=== PATIENT | female | born 1940 | race Caucasian/White ===

== ENCOUNTER 2017-02-23 08:12 | Outpatient (CLI) | payer MEDICARE ==
--- NOTE | 2017-02-23 10:14 | MRI ---
MRI OF THE LUMBAR SPINE WITHOUT CONTRAST: Date: 02/23/17 INDICATION: History of low back pain with radiation into the left leg. COMPARISON: Lumbar spine radiograph dated 02/09/14. FINDINGS: There are five lumbar-type vertebrae. There is Grade I anterolisthesis of L4 on L5 which is stable. The conus is seen to terminate at approximately L1. At L5-S1, there is moderate facet joint degenerative change and broad based disc bulge without appre ciable central canal or neural foraminal narrowing. At L4-5, the Grade I anterolisthesis, severe facet joint degenerative change, and ligamentum flavum hypertrophy induce moderate to severe central canal narrowing with moderate to severe bilateral neur al foraminal narrowing. At L4-5, there is advanced facet joint degenerative change, broad based disc bulge, and Grade I ante rolisthesis inducing mild central canal narrowing and mild bilateral neural foraminal narrowing. At L2-3, there is mild facet joint degenerative change without appreciable central canal or neural f oraminal narrowing. At L1-2, there is no appreciable central canal or neural foraminal narrowing. At T12-L1, there is no appreciable central canal or neural foraminal narrowing. At T9-T10, there is a disc osteophyte complex causing mild central canal narrowing and mild bilatera l neural foraminal narrowing. IMPRESSION: 1. Multilevel spondylosis of the thoracolumbar spine, most pronounced at L3-4 and L4-5. 2. There is mild central canal narrowing and mild bilateral neural foraminal narrowing at T9-T10. T his is related to a disc osteophyte complex. POS: DEANDRE
== END 2017-02-23 08:13 | disposition home or self-care (01) ==
LOC: TBSIIMAG 08:12
PROVIDERS: ATTEND Neurological Surgery
DX: M47.26 Other spondylosis with radiculopathy, lumbar region (principal); M48.04 Spinal stenosis, thoracic region
CPT/HCPCS: 72148

== ENCOUNTER 2018-01-24 10:16 | Outpatient (CLI) | payer MEDICARE | END 2018-01-24 10:17 | disposition home or self-care (01) | LOC: BICMAMMO 10:16 | PROVIDERS: ATTEND Family Medicine | DX: Z12.31 Encounter for screening mammogram for malignant neoplasm of breast (principal); Z85.41 Personal history of malignant neoplasm of cervix uteri | CPT/HCPCS: 77063; 77067 ==

== ENCOUNTER 2018-04-13 06:02 | Day surgery (SDC) | payer MEDICARE ==
[2018-04-12 08:38] VITALS: BMI 33.8
--- NOTE | 2018-04-13 05:59 | HP ---
HISTORY OF PRESENT ILLNESS: Ms. Knapp is a pleasant 77-year-old woman seen for evaluation and was followed by Dr. Medina for left-sided L4 pattern of pain in the bilateral lower extremities, radiating from the back and stopping just below the knee with onset back in June 2016 after knee replacement. She has a new MRI from [facility] that reveals spondylolisthesis at L4-L5, significant lateral recess and foraminal stenosis that would match. She has treated this over time with physical therapy, chiropractics, medications, but still to no avail. PAST MEDICAL HISTORY: Significant for acid reflux, heartburn, ischemic colitis, lymphatic colitis, and osteoarthritis. PAST SURGICAL HISTORY: Appendectomy, thyroidectomy, tonsillectomy, unspecified jaw surgery, bilateral carpal tunnel release, hysterectomy, arthroscopic knee surgery, cholecystectomy, unspecified bile duct surgery, , total knee replacement bilaterally, neuroma resection. CURRENT MEDICATIONS: 1. Omeprazole. 2. Levothyroxine. 3. Fenofibrate. 4. Diclofenac. 5. . 6. Losartan. 7. Amlodipine. 8. Ranitidine. 9. Budesonide. 10. Cyclobenzaprine. ALLERGIES: 1. CODEINE. 2. MORPHINE. 3. DEMEROL. 4. ASPIRIN. 5. VIOXX. PHYSICAL EXAMINATION: The patient is alert and oriented x3. Gait is not antalgic. Lower extremity motor exam is normal. Positive straight leg raise bilaterally. ASSESSMENT: Lumbar spondylolisthesis with radiculopathy. PLAN: Dr. Bethea met with the patient, reviewed imaging, advocated for an L4-L5 facetectomy and fusion. I explained the patient the risks, benefits, and alternatives of the procedure. The patient expressed understanding and elected to move forward with surgery as discussed. I do believe that the patient is mentally competent and capable of making medical decisions for herself and we will move forward with surgery as planned. Job ID: [id number]
[2018-04-13] MEDS ORDERED: CEFAZOLIN 2 GM/50 ML BAG ONE ×2 (07:12→14:11)
[2018-04-13] MEDS ORDERED: Bupivacaine HCl 0.5%/Epinephrine 1:200,000/PF 30 ml Vial ONE (08:26)
[2018-04-13] MEDS ORDERED: Midazolam HCl 2 mg/2 ml Vial ONE (08:30)
[2018-04-13] MEDS ORDERED: Fentanyl 100 MCG/2 ML VIAL ONE ×5 (08:30→11:49)
--- NOTE | 2018-04-13 09:48 | PRG ---
DATE OF SERVICE: 04/13/2018 SUBJECTIVE: Ms. Knapp is a 77-year-old female, known to me from previous evaluation in the outpatient setting for low back and bilateral lower extremity pain. She has a grade 1/borderline grade 2 spondylolisthesis of L4 upon L5. She has been treating this nonsurgically for the past couple of years in the way of medications, physical therapy, and injections. She decided to move forward with surgery. Our plan will be to perform a L4-L5 decompression with L4-L5 posterior lateral instrumented fusion. I met with her again in the outpatient day stay area this morning, reviewed with her again the risks, benefits, and alternatives to surgical procedure. She has offered informed consent. Job ID: [id number]
[2018-04-13] MEDS ORDERED: tiZANidine HCl 4 MG TAB ONE (12:49)
[2018-04-13] MEDS ORDERED: Promethazine HCl 25 MG/ML VIAL ONE (14:38)
--- NOTE | 2018-04-13 15:18 | OP ---
DATE OF PROCEDURE: 04/13/2018 FLEET MANAGER: Kendall Aldana PA-C INDICATION: Pain. DIAGNOSES: L4 upon L5 grade 1 spondylolisthesis with associated low back pain and bilateral lumbar radiculopathy. PROCEDURES PERFORMED: L4-L5 bilateral facetectomy, bilateral L4-L5 posterolateral instrumented fusion. ANESTHESIA: General. DESCRIPTION OF PROCEDURE: The patient was brought into the operating room and placed under general anesthesia. She was flipped from the supine to prone position on the operating room table. A linear incision was planned over the L4-L5 segment. After prepping and draping and after preoperative pause, the incision was created. The soft tissues were swept away from midline. Self-retaining retractors were placed in the wound for optimal exposure. After confirming appropriate level with C-arm fluoroscopy, high-speed cutting drill bit, as well as Adson rongeur, as well as 2, 3, and 4 mm Kerrisons were used to perform a laminectomy at L4-L5, which included bilateral facetectomies. After identifying the pedicles bilaterally, pedicle screws were placed with the aid of C-arm fluoroscopy. An intraoperative 3D CT scan was performed to confirm appropriate placement of hardware. Rods were then placed across the screw head and final tightened with set screws. Allograft and autograft materials were then placed within the lateral confine to the instrumentation construct. The wound was irrigated. Hemostasis was maintained throughout. The wound was then closed in anatomic layers and a pressure dressing was applied. There were no known procedural complications. Job ID: [id number]
== END 2018-04-13 15:00 | disposition home or self-care (01) ==
LOC: SDC 06:02
PROVIDERS: ATTEND Neurological Surgery
PROC: 0SG0071 Fusion of Lumbar Vertebral Joint with Autologous Tissue Substitute, Posterior Approach, Posterior Column, Open Approach (ICD-10-PCS; principal; 2018-04-13)
DX: M43.16 Spondylolisthesis, lumbar region (principal); M54.16 Radiculopathy, lumbar region; M48.061 Spinal stenosis, lumbar region without neurogenic claudication; M48.02 Spinal stenosis, cervical region; K21.9 Gastro-esophageal reflux disease without esophagitis; M19.90 Unspecified osteoarthritis, unspecified site; E89.0 Postprocedural hypothyroidism; Z79.899 Other long term (current) drug therapy; Z88.5 Allergy status to narcotic agent; Z88.8 Allergy status to other drugs, medicaments and biological substances; Z96.653 Presence of artificial knee joint, bilateral; Z98.890 Other specified postprocedural states
CPT/HCPCS: 20930; 20936; 22612; 22840; 76001; 96374; C1713 ×2; J0670; J2250; J2550; J3010

== ENCOUNTER 2018-06-29 13:25 | Outpatient (CLI) | payer MEDICARE ==
[~2018-06-29 13:25] MED LIST: Gadobenate Dimeglumine 529 MG/1 ML (20ML VIAL) ONE
--- NOTE | 2018-06-29 16:00 | MRI ---
MRI OF THE LUMBAR SPINE WITH AND WITHOUT CONTRAST: INDICATION: Low back pain radiating into the left leg with a history of back surgery in April 2018. CONTRAST: 10 cc of MultiHance. COMPARISON: Prior exam dated 02/23/2017. FINDINGS: Since the comparison examination, there have been interval laminectomies at L4 with placement of bila teral pedicular screws at L4-5 with interconnecting cables. There is a 1.3 x 3 cm peripherally enhan cing fluid collection seen within the laminectomy site at L4-5 which may reflect a postoperative flui d collection such as a seroma or potentially a small abscess. The grade I anterolisthesis of L4-L5 is stable. Grade I anterolisthesis of L3 on L4 is stable. At the L5-S1 level, there is stable moderate facet joint degenerative change and a broad-based bulge, but no appreciable central or neural foraminal narrowing. At L4-5, there is improvement in the central canal narrowing due to the posterior decompression. Gra de I anterolisthesis in addition to the broad-based pseudobulge and loss of disk space height induces moderate bilateral neural foraminal narrowing which appears stable to the prior exam. At L3-4, there is a broad-based bulge with facet hypertrophy inducing mild central canal narrowing wi th moderate bilateral neural foraminal narrowing that has slightly progressed from the prior examinat ion. This is mainly related to prominence of a broad-based bulge that has worsened since the prior e xam. At L2-3, there is a broad-based bulge with mild facet joint degenerative change, but no appreciable c entral canal or neural foraminal narrowing. At L1-2, there is no appreciable central canal or neural foraminal narrowing. At T12-L1, there is no appreciable central canal or neural foraminal narrowing. No intrathecal abnor mal enhancement is grossly evident. IMPRESSION: 1. Interval laminectomy at L4 with L4-L5 posterior lumbar interbody fusion. There is a small periph erally enhancing fluid collecting measuring up to 3 cm within the laminectomy defect site which may r eflect postoperative seroma or possibly a small abscess. This is seen slightly left of midline withi n the laminectomy site. This is best seen on image 31 of series 8 and image 12 of series 10. 2. Improvement of the severe stenosis seen at L4-5 on the prior examination due to posterior decompr ession. There is stable moderate bilateral neural foraminal narrowing at L4-5. 3. Worsening moderate bilateral neural foraminal narrowing at L3-4 due to worsening prominence of a broad-based disk bulge. POS: C
== END 2018-06-29 13:26 | disposition home or self-care (01) ==
LOC: MRI 13:25
PROVIDERS: ATTEND Neurological Surgery
DX: M54.16 Radiculopathy, lumbar region (principal); M48.061 Spinal stenosis, lumbar region without neurogenic claudication; Z98.1 Arthrodesis status
CPT/HCPCS: 72158; 82565; A9577

== ENCOUNTER 2018-06-30 08:42 | Outpatient (CLI) | payer MEDICARE ==
--- NOTE | 2018-06-30 10:48 | RAD ---
RIGHT HIP 2 VIEWS: HISTORY: Hip pain. FINDINGS: Bones appear demineralized. Joint space is fairly well preserved. There are no signs of fracture. IMPRESSION: Bone demineralization. POS: TPC
--- NOTE | 2018-06-30 11:06 | RAD ---
TWO VIEWS LEFT HIP: DATE: 06/30/2018. PROVIDED CLINICAL HISTORY: Left hip pain. FINDINGS: There is no evidence for fracture or other acute osseous abnormality. Evaluation is limited by patie nt body habitus. Left hip joint space appears preserved. Alignment appears anatomic. IMPRESSION: No evidence for an acute osseous abnormality or significant arthropathy. POS: OFF
== END 2018-06-30 08:43 | disposition home or self-care (01) ==
LOC: TBSIIMAG 08:42
PROVIDERS: ATTEND Neurological Surgery
DX: M25.559 Pain in unspecified hip (principal); M81.0 Age-related osteoporosis without current pathological fracture

== ENCOUNTER 2018-12-29 08:33 | Outpatient (CLI) | payer MEDICARE | END 2018-12-29 08:34 | disposition home or self-care (01) | LOC: LABBT 08:33 | PROVIDERS: ATTEND Orthopaedic Surgery | DX: Z01.818 Encounter for other preprocedural examination (principal); M16.12 Unilateral primary osteoarthritis, left hip | CPT/HCPCS: 87081 ==

== ENCOUNTER 2018-12-29 13:15 | Inpatient (IN) | payer MEDICARE ==
--- NOTE | 2019-01-05 08:49 | HP ---
HISTORY OF PRESENT ILLNESS: The patient is a 78-year-old female who has a several-month history of progressive pain in her left hip without radiation. She has pain in her groin, which radiates toward her knee and back and forth. The pain is worse with ambulation and this progresses, now interfering with day-to-day activities including walking, getting dressed, and sleeping. She had a lumbar fusion done by Dr. Bethea in April 2018, which helped her back pain, but she continued to have left hip and groin pain. The pain is almost progressed to the point of incapacitation. PAST SURGERY HISTORY: As noted above. The patient has had previous total knee replacement, partial thyroidectomy, appendectomy, carpal tunnel release, hysterectomy, and cholecystectomy. She recently had a negative cardiac workup and has been seen and cleared for surgery by Dr. Kathleen Araujo. CURRENT MEDICATIONS: Include, 1. Omeprazole. 2. Ranitidine. 3. Fluticasone. 4. Glucosamine. 5. Multivitamins. 6. Levothyroxine. 7. Fenofibrate. 8. Losartan. 9. Potassium. 10. Hydrochlorothiazide. 11. Cyclosporine eyedrops. 12. Cyclobenzaprine. ALLERGIES: SHE IS ALLERGIC TO CODEINE AND MORPHINE AND DEMEROL, WHICH CAUSES VOMITING AND NAUSEA. LIPITOR CAUSES MUSCLE ACHES DOES IS ZOCOR. SHE HAS ANAPHYLAXIS TO ASPIRIN, BUT HAS BEEN ABLE TO TOLERATE NAPROXEN AND VOLTAREN IN THE PAST. FAMILY HISTORY: Otherwise unremarkable. SOCIAL HISTORY: Otherwise unremarkable. REVIEW OF SYSTEMS: Otherwise unremarkable. PHYSICAL EXAMINATION: GENERAL: Reveals a healthy elderly female. HEENT: Unremarkable. NECK: Supple. CHEST: Clear. HEART: Regular rate and rhythm. ABDOMEN: Soft, nontender. PELVIC: Deferred. RECTAL: Deferred. BREASTS: Deferred. EXTREMITIES: Pertinent findings to the left hip. Her leg lengths are equal. There is tenderness in the anterior hip. There is a left antalgic gait. She walks with a walker. There is decreased range of motion of the left hip and groin pain. Knee pain with internal rotation of the left hip. There is slight crepitus with range of motion. NEUROVASCULAR: Intact. DIAGNOSTIC STUDIES: X-rays of her left hip reveal severe degenerative arthritis with minimal joint space remaining, which has progressed from previous x-rays. X-rays of her left knee reveal intact total knee replacement without apparent loosening or change from previous x-rays. IMPRESSION: 1. Degenerative arthritis, left hip. 2. History of hypertension. 3. History of thyroid replacement. 4. Status post lumbar fusion. 5. Status post left total knee replacement. PLAN: Left total hip replacement. The nature of the surgery, length of recovery, and potential complications such as infection, loss of motion, incomplete relief, neurovascular injury, thromboembolic phenomena, leg-length discrepancy, possible transfusion, and need for revision have been discussed in detail. Job ID: [id number]
[2019-01-09] MEDS ORDERED: Tranexamic Acid 1,000 MG/10 ML VIAL ONE ×2 (07:16→11:48)
[2019-01-09] MEDS ORDERED: Sodium Chloride 0.9% 100 ML ONE (07:16)
[2019-01-09] MEDS ORDERED: Midazolam HCl 2 mg/2 ml Vial ONE (08:10)
[2019-01-09] MEDS ORDERED: Fentanyl 100 MCG/2 ML VIAL ONE ×2 (08:10→12:21)
[2019-01-09] MEDS ORDERED: Naloxone HCl 0.4 mg/ml Vial IV PRN (09:00)
[2019-01-09] MEDS ORDERED: diphenhydrAMINE 50 MG/ML VIAL IM PRN (09:00)
[2019-01-09] MEDS ORDERED: Bupivacaine 0.25% 10 ML VIAL EPIDURAL PRN (09:00)
[2019-01-09] MEDS ORDERED: Promethazine HCl 25 MG SUPP PR PRN (09:00)
[2019-01-09] MEDS ORDERED: Zolpidem Tartrate 5 MG TAB PO PRN ×2 (09:00→11:50)
[2019-01-09] MEDS ORDERED: HYDROcodone/Acetaminophen 5/325 mg Tablet PO PRN ×2 (09:00)
[2019-01-09] MEDS ORDERED: diphenhydrAMINE 50 MG/ML VIAL IVP PRN (09:00)
[2019-01-09] MEDS ORDERED: diphenhydrAMINE 25 MG CAP PO PRN ×2 (09:00→11:50)
[2019-01-09] MEDS ORDERED: Ondansetron PF 4 MG/2 ML Vial IVP PRN (09:00)
[2019-01-09] MEDS ORDERED: Promethazine HCl 25 MG/ML VIAL IM PRN ×2 (09:00→10:15)
[2019-01-09] MEDS ORDERED: Naloxone HCl 0.4 mg/ml Vial IVP PRN (09:00)
[2019-01-09] MEDS ORDERED: Hydrocerin (Eucerin) Cream 120 gm Jar TOP PRN (09:00)
[2019-01-09] MEDS ORDERED: Acetaminophen 500 MG TAB PO PRN (09:02)
[2019-01-09] MEDS ORDERED: Ropivacaine 0.5% HCl/PF (150 MG/30 ML VIAL) ONE (09:49)
[2019-01-09] MEDS ORDERED: Ondansetron HCl/PF 4 MG/2 ML Vial IVP PRN (10:15)
[2019-01-09] MEDS ORDERED: Promethazine HCl 25 MG/ML VIAL SLOW IVP PRN ×2 (10:15→11:50)
[2019-01-09] MEDS ORDERED: Tranexamic Acid 1,000 MG in Sodium Chloride 0.9% 100 ML IVPB SCH (11:50)
[2019-01-09] MEDS ORDERED: HYDROcodone/Acetaminophen 10/325 mg Tablet PO PRN ×2 (11:50)
[2019-01-09] MEDS ORDERED: Fentanyl 100 MCG/2 ML VIAL SLOW IVP PRN ×2 (11:50)
[2019-01-09] MEDS ORDERED: Ketorolac Tromethamine 30 MG/ML VIAL IVP SCH (12:00)
--- NOTE | 2019-01-09 12:10 | RAD ---
Exam:Left hip 2 views HISTORY: Post arthroplasty COMPARISON: 06/22/2018 FINDINGS: Uncomplicated left hip arthroplasty. Findings are compatible with recent surgery. IMPRESSION: Findings compatible with recent left hip arthroplasty.
--- NOTE | 2019-01-09 12:20 | OP ---
DATE OF PROCEDURE: 01/09/2019 ACCESS CONTROL SPECIALIST: Isabela Donaldson PA-C ANESTHESIA: General plus epidural. PREOPERATIVE DIAGNOSIS: Degenerative arthritis, left hip. POSTOPERATIVE DIAGNOSIS: Degenerative arthritis, left hip. PROCEDURE PERFORMED: Left total hip replacement with uncemented [place] Tritanium acetabular component 54 mm with X3 polyethylene insert and uncemented Accolade II femoral component #3 with 132-degree neck angle and 36 mm standard neck length, all metal head. DESCRIPTION OF PROCEDURE: After satisfactory anesthesia was induced in supine position, sequential compression device was placed on the nonoperative leg throughout the procedure. The patient was placed in a lateral decubitus position. This position held with the hip positioning device. The patient's left hip was then prepped and draped in routine sterile fashion. The hip was approached through a lateral curvilinear incision, centered over the greater trochanter, carried down through the subcutaneous tissues and bleeding points controlled with Bovie cautery. ID band and gluteal fascia were split in line with skin incision. A direct lateral approach to the hip joint was accomplished by dividing the anterior third of the gluteus medius and minimus tendons with the Bovie cautery and reflecting this as a single flap anteromedially along with the vastus lateralis. Anterior capsulectomy was performed. The hip was dislocated anteriorly. There was marked degenerative arthritis of the hip with large areas of exposed bone. The femoral neck was osteotomized with oscillating saw using a trial prosthesis as a guide. The acetabulum was exposed and cleared of all soft tissue and debris and then reamed with prior reamers down to bleeding subchondral bone in sequence to a total of 53 mm. It was felt that a 54 mm Tritanium outer shell could be placed in a press-fit fashion. The permanent outer shell was then hammered in position. There was good fit and stability of the outer shell and the permanent X3 polyethylene insert was inserted. The proximal femur was then exposed and opened with the box osteotome and rasped in sequence to accept a #3 Accolade II femoral rasp. A 132-degree neck angle trunnion was placed on the rasp and trial reduction with standard neck length 36 mm head gave appropriate size, fit, and stability. The hip was dislocated. The trial components were removed. The permanent #3 Accolade II femoral stem was then hammered in position. There was again good fit and stability of the component. The permanent 36 mm metal head standard neck length was placed on the trunnion and the hip again reduced. It was found to be stable. The wound was thoroughly irrigated with pulsatile lavage. The abductors were repaired with interrupted #2 Vicryl. IT band and gluteal fascia were closed with interrupted #2 Vicryl and a running #2 Quill. Subcutaneous tissues were closed with a running 0 Quill suture and the skin was closed with running subcuticular 3-0 Monoderm and SurgiSeal skin adhesive. A sterile dressing was applied and the patient turned to supine position. A sequential compression device applied to her operated leg and pillow placed in her legs and she was awakened and taken to the recovery room in stable condition. There were no apparent intraoperative complications. The estimated blood loss was 200 mL. Job ID: [id number]
[2019-01-09] MEDS ORDERED: ePHEDrine 50 MG/ML VIAL ONE (13:46)
[2019-01-09] MEDS ORDERED: PROPOFOL 200 MG/20 ML VIAL ONE (13:46)
[2019-01-09] MEDS ORDERED: Glycopyrrolate 0.2 MG/ML 5 ML SYRINGE ONE (13:46)
[2019-01-09] MEDS ORDERED: Rocuronium Bromide 10 MG/ML (10ML VIAL) ONE (13:46)
[2019-01-09] MEDS ORDERED: PHENYLEPHRINE-NS 100 MCG/ML 10 ML SYRINGE ONE (13:46)
[2019-01-09] MEDS: Ondansetron PF 4 MG/2 ML Vial IVP PRN (15:00)
[2019-01-09] MEDS: Sodium Chloride 0.9% 1,000 ML IV SCH ×2 (15:00→22:36)
[2019-01-09] MEDS: CEFAZOLIN 2 GM in Premix Bag 1 BAG IVPB SCH ×2 (15:42→23:54)
[2019-01-09 17:27] VITALS: BMI 32.1
[2019-01-09] MEDS ORDERED: Vancomycin HCl 1 GM in Premix Bag 1 BAG IVPB SCH (19:00)
[2019-01-09] MEDS: Ferrous Gluconate 324 MG TAB PO SCH (20:37)
[2019-01-09] MEDS: Famotidine 20 MG TAB PO SCH (20:37)
[2019-01-09] MEDS: Senokot S 8.6-50 MG TAB PO SCH (20:37)
[2019-01-09] MEDS: Fenofibrate Nanocrystallized 145 MG TAB PO SCH (22:33)
[2019-01-09] MEDS: Cyclobenzaprine 10 MG TAB PO PRN (22:33)
[2019-01-10] MEDS: Ondansetron PF 4 MG/2 ML Vial IVP PRN (00:13)
[2019-01-10] MEDS: Acetaminophen 325 MG TAB PO PRN ×2 (03:28→12:46)
[2019-01-10] MEDS: fentaNYL Citrate/PF 500 MCG, Bupivacaine 10 ML in Sodium Chloride 0.9% 80 ML EPIDURAL SCH ×2 (04:31→21:03)
[2019-01-10 05:16] LABS: Hemoglobin 11.7 g/dL (12.0-16.0); Mean Corpuscular HGB CONC 33.5 g/dL (32.0-36.0); Mean Corpuscular Hemoglobin 30.9 pg (27.0-31.0); Mean Corpuscular Volume 92.3 fL (78.0-98.0); Mean Platelet Volume 8.7 fL (7.4-10.4); Platelet Count 210 thou/uL (130-400); RBC Distribution Width 12.8 % (11.5-14.5); Red Blood Cell (RBC) Count 3.79 mill/uL (4.20-5.40); White Blood Cell (WBC) Count 8.1 thou/uL (4.8-10.8)
[2019-01-10] MEDS: Sodium Chloride 0.9% 1,000 ML IV SCH ×3 (06:13→23:00)
[2019-01-10] MEDS: Levothyroxine Sodium 100 MCG TAB PO SCH (06:13)
[2019-01-10] MEDS: Cyclobenzaprine 10 MG TAB PO PRN ×2 (06:13→12:46)
[2019-01-10] MEDS: Famotidine 20 MG TAB PO SCH ×2 (07:56→21:04)
[2019-01-10] MEDS: Multivitamin W/ Minerals 1 TAB PO SCH (07:56)
[2019-01-10] MEDS: Ferrous Gluconate 324 MG TAB PO SCH ×2 (07:56→21:04)
[2019-01-10] MEDS: Senokot S 8.6-50 MG TAB PO SCH ×2 (07:56→21:03)
[2019-01-10] MEDS ORDERED: Enoxaparin Sodium 40 MG/0.4 ML SYRINGE SC SCH ×2 (09:00→16:00)
[2019-01-10] MEDS ORDERED: Non-Formulary Item 1 EACH (Omeprazole [Omeprazole] 40 MG) PO SCH (09:00)
[2019-01-10] MEDS: Amlodipine 5 MG TAB PO SCH (09:33)
[2019-01-10] MEDS: Fluticasone Propionate Nasal Spray 16 gm Bottle NASAL SCH (09:34)
--- NOTE | 2019-01-10 20:04 | PDOC.HOSPP ---
- Subjective Encounter Date: 01/09/19 Encounter Time: 22:00 Subjective: Patient seen and examined for med mngt. No CP or SOB. No new complaints. - Objective Vital Signs & Weight: Vital Signs (12 hours) Temp Pulse Resp BP BP Pulse Ox 01/10/19 15:09 98.8 F 86 16 131/76 94 L 01/10/19 09:33 68 115/46 L Weight Admit Weight 170 lb Weight 170 lb I&O: 01/09/19 01/10/19 01/11/19 06:59 06:59 06:59 Intake Total 950 Output Total 1300 Balance -350 Result Diagrams: 01/10/19 05:00 EKG Reviewed by me: Yes (SR) Hospitalist ROS - Review of Systems Respiratory: denies: cough, dry, shortness of breath, hemoptysis, SOB with excertion, pleuritic pain, sputum, wheezing, other Cardiovascular: denies: chest pain, palpitations, orthopnea, paroxysmal noc. dyspnea, edema, light headedness, other - Medication Medications: Active Medications Generic Name Dose Route Start Last Admin Trade Name Freq PRN Reason Stop Dose Admin Acetaminophen 650 mg 01/09/19 11:50 01/10/19 12:46 Tylenol PO 650 mg Q4H PRN Administration Headache/Fever or Pain Amlodipine Besylate 5 mg 01/10/19 09:00 01/10/19 09:33 Norvasc PO Not Given QAM FREDA Cyclobenzaprine HCl 10 mg 01/09/19 11:50 01/10/19 12:46 Flexeril PO 10 mg TID PRN Administration MUSCLE SPASMS/PAIN Famotidine 20 mg 01/09/19 21:00 01/10/19 07:56 Pepcid PO 20 mg BID FREDA Administration Fenofibrate 145 mg 01/09/19 21:00 01/09/19 22:33 Tricor PO 145 mg HS FREDA Administration Ferrous Gluconate 324 mg 01/09/19 21:00 01/10/19 07:56 Fergon PO 324 mg BID FREDA Administration Fluticasone Propionate 0 gm 01/10/19 09:00 01/10/19 09:34 Flonase Nasal [place] NASAL Not Given DAILY FREDA HCTZ/Losartan Potassium 1 tab 01/10/19 09:00 01/10/19 09:34 Hyzaar 50/12.5 PO Not Given QAM FREDA Fentanyl Citrate 500 mcg/ 100 mls @ 6 mls/hr 01/09/19 09:00 01/10/19 04:31 Bupivacaine HCl 10 ml/ Sodium EPIDURAL 100 mls Chloride INF FREDA Administration Sodium Chloride 1,000 mls @ 100 mls/hr 01/09/19 11:50 01/10/19 18:25 Normal Saline 0.9% IV Not Given .Q10H FREDA Iron/Minerals/Multivitamins 1 tab 01/10/19 09:00 01/10/19 07:56 Theragran M PO 1 tab DAILY FREDA Administration Levothyroxine Sodium 100 mcg 01/10/19 06:00 01/10/19 06:13 Synthroid PO 100 mcg 0600 FREDA Administration Ondansetron HCl 4 mg 01/09/19 11:50 01/10/19 00:13 Zofran IVP 4 mg Q6H PRN Administration Nausea/Vomiting Pantoprazole Sodium 40 mg 01/10/19 09:00 01/10/19 07:57 Protonix PO 40 mg DAILY FREDA Administration Senna/Docusate Sodium 2 tab 01/09/19 21:00 01/10/19 07:56 Senokot S PO 2 tab BID FREDA Administration - Exam General Appearance: NAD Neck: supple, no JVD Heart: RRR, no gallops Respiratory: CTAB, no rales Gastrointestinal: soft, non-tender, non-distended, normal bowel sounds Extremities: no edema Hosp A/P (1) DJD (degenerative joint disease) Code(s): M19.90 - UNSPECIFIED OSTEOARTHRITIS, UNSPECIFIED SITE Status: Acute (2) Obesity (BMI 30.0-34.9) Code(s): E66.9 - OBESITY, UNSPECIFIED Status: Acute (3) CKD (chronic kidney disease) stage 3, GFR 30-59 ml/min Code(s): N18.3 - CHRONIC KIDNEY DISEASE, STAGE 3 (MODERATE) Status: Acute (4) Dyslipidemia Code(s): E78.5 - HYPERLIPIDEMIA, UNSPECIFIED Status: Chronic (5) HTN (hypertension) Code(s): I10 - ESSENTIAL (PRIMARY) HYPERTENSION Status: Chronic Qualifiers: Hypertension type: essential hypertension Qualified Code(s): I10 - Essential (primary) hypertension (6) Hypothyroidism Code(s): E03.9 - HYPOTHYROIDISM, UNSPECIFIED Status: Chronic - Plan PT/OT, incentive spirometry, DVT proph w/SCDs Cont Amlodipine Cont Levothyroxine Cont Omeprazole Cont Fenofibrate Full code. DPOA - self/family
[2019-01-10] MEDS: Fenofibrate Nanocrystallized 145 MG TAB PO SCH (21:03)
--- NOTE | 2019-01-10 21:45 | PDOC.HOSPP ---
- Subjective Encounter Date: 01/10/19 Encounter Time: 07:45 Subjective: Patient seen and examined for med mngt. No fever/chills or CP. No new complaints. No overnight events - Objective Vital Signs & Weight: Vital Signs (12 hours) Temp Pulse Resp BP Pulse Ox 01/10/19 19:42 98.7 F 85 16 114/61 92 L 01/10/19 15:09 98.8 F 86 16 131/76 94 L Weight Admit Weight 170 lb Weight 170 lb I&O: 01/09/19 01/10/19 01/11/19 06:59 06:59 06:59 Intake Total 950 Output Total 1300 Balance -350 Result Diagrams: 01/10/19 05:00 Hospitalist ROS - Review of Systems Respiratory: denies: cough, dry, shortness of breath, hemoptysis, SOB with excertion, pleuritic pain, sputum, wheezing, other Cardiovascular: denies: chest pain, palpitations, orthopnea, paroxysmal noc. dyspnea, edema, light headedness, other - Medication Medications: Active Medications Generic Name Dose Route Start Last Admin Trade Name Freq PRN Reason Stop Dose Admin Acetaminophen 650 mg 01/09/19 11:50 01/10/19 12:46 Tylenol PO 650 mg Q4H PRN Administration Headache/Fever or Pain Amlodipine Besylate 5 mg 01/10/19 09:00 01/10/19 09:33 Norvasc PO Not Given QAM FREDA Cyclobenzaprine HCl 10 mg 01/09/19 11:50 01/10/19 12:46 Flexeril PO 10 mg TID PRN Administration MUSCLE SPASMS/PAIN Famotidine 20 mg 01/09/19 21:00 01/10/19 21:04 Pepcid PO 20 mg BID FREDA Administration Fenofibrate 145 mg 01/09/19 21:00 01/10/19 21:03 Tricor PO 145 mg HS FREDA Administration Ferrous Gluconate 324 mg 01/09/19 21:00 01/10/19 21:04 Fergon PO 324 mg BID FREDA Administration Fluticasone Propionate 0 gm 01/10/19 09:00 01/10/19 09:34 Flonase Nasal [place] NASAL Not Given DAILY FREDA HCTZ/Losartan Potassium 1 tab 01/10/19 09:00 01/10/19 09:34 Hyzaar 50/12.5 PO Not Given QAM FREDA Fentanyl Citrate 500 mcg/ 100 mls @ 6 mls/hr 01/09/19 09:00 01/10/19 21:03 Bupivacaine HCl 10 ml/ Sodium EPIDURAL 100 mls Chloride INF FREDA Administration Sodium Chloride 1,000 mls @ 100 mls/hr 01/09/19 11:50 01/10/19 18:25 Normal Saline 0.9% IV Not Given .Q10H FREDA Iron/Minerals/Multivitamins 1 tab 01/10/19 09:00 01/10/19 07:56 Theragran M PO 1 tab DAILY FREDA Administration Levothyroxine Sodium 100 mcg 01/10/19 06:00 01/10/19 06:13 Synthroid PO 100 mcg 0600 FREDA Administration Ondansetron HCl 4 mg 01/09/19 11:50 01/10/19 00:13 Zofran IVP 4 mg Q6H PRN Administration Nausea/Vomiting Pantoprazole Sodium 40 mg 01/10/19 09:00 01/10/19 07:57 Protonix PO 40 mg DAILY FREDA Administration Senna/Docusate Sodium 2 tab 01/09/19 21:00 01/10/19 21:03 Senokot S PO 2 tab BID FREDA Administration - Exam Heart: RRR, no rubs Respiratory: CTAB, no ronchi Gastrointestinal: soft, normal bowel sounds Hosp A/P (1) HTN (hypertension) Code(s): I10 - ESSENTIAL (PRIMARY) HYPERTENSION Status: Chronic Qualifiers: Hypertension type: essential hypertension Qualified Code(s): I10 - Essential (primary) hypertension (2) DJD (degenerative joint disease) Code(s): M19.90 - UNSPECIFIED OSTEOARTHRITIS, UNSPECIFIED SITE Status: Acute (3) Obesity (BMI 30.0-34.9) Code(s): E66.9 - OBESITY, UNSPECIFIED Status: Acute (4) CKD (chronic kidney disease) stage 3, GFR 30-59 ml/min Code(s): N18.3 - CHRONIC KIDNEY DISEASE, STAGE 3 (MODERATE) Status: Acute (5) Dyslipidemia Code(s): E78.5 - HYPERLIPIDEMIA, UNSPECIFIED Status: Chronic (6) Hypothyroidism Code(s): E03.9 - HYPOTHYROIDISM, UNSPECIFIED Status: Chronic - Plan PT/OT, incentive spirometry, DVT proph w/SCDs Cont Amlodipine/Levothyroxine/Omeprazole/Fenofibrate Cont other meds as above Will follow PRN
[2019-01-11] MEDS: Levothyroxine Sodium 100 MCG TAB PO SCH (05:01)
[2019-01-11] MEDS: Acetaminophen 325 MG TAB PO PRN (05:01)
[2019-01-11] MEDS: Senokot S 8.6-50 MG TAB PO SCH (08:34)
[2019-01-11] MEDS: Ferrous Gluconate 324 MG TAB PO SCH (08:34)
[2019-01-11] MEDS: Famotidine 20 MG TAB PO SCH (08:35)
[2019-01-11] MEDS: Multivitamin W/ Minerals 1 TAB PO SCH (08:35)
[2019-01-11] MEDS: Amlodipine 5 MG TAB PO SCH (08:35)
--- NOTE | 2019-01-11 09:35 | PRG ---
DATE OF SERVICE: 01/10/2019 SUBJECTIVE: Kyleigh is a 78-year-old female, who is postop day 1 from a left total hip arthroplasty. She has done relatively well. She ambulated 100 feet in the morning of postop day 1. Otherwise, pain is relatively well controlled. OBJECTIVE: VITAL SIGNS: Temperature 98.7, pulse 68, respiratory rate 14, O2 saturation is 98% on room air, and blood pressure 115/78. GENERAL: She is alert and oriented to person, place, time, and situation. Nonfocal. Responsive and appropriate to examiner. EXTREMITIES: Incision is clean. No strikethrough. No erythema. She is neurovascularly intact in both lower extremities. LABORATORY DATA: Hemoglobin and hematocrit 11.7 and 35. IMPRESSION AND PLAN: A 78-year-old female, postop day 1 left total hip arthroplasty doing well. Plan, continue current care. Probable discharge home tomorrow. Job ID: [id number]
[2019-01-11] MEDS: Fluticasone Propionate Nasal Spray 16 gm Bottle NASAL SCH (09:43)
[2019-01-11 11:51] VITALS: BP 127/78; TEMP 97.9
== END 2019-01-11 13:53 | disposition home or self-care (01) | DRG 470 ==
LOC: SJJU 01-09 06:49
PROVIDERS: ADMIT Orthopaedic Surgery; ATTEND Orthopaedic Surgery
PROC: 0SRB04A Replacement of Left Hip Joint with Ceramic on Polyethylene Synthetic Substitute, Uncemented, Open Approach (ICD-10-PCS; principal; 2019-01-09)
DX: M16.12 Unilateral primary osteoarthritis, left hip (principal); E66.9 Obesity, unspecified; N18.3 Chronic kidney disease, stage 3 (moderate); E03.9 Hypothyroidism, unspecified; Z96.652 Presence of left artificial knee joint; I12.9 Hypertensive chronic kidney disease with stage 1 through stage 4 chronic kidney disease, or unspecified chronic kidney disease; Z79.899 Other long term (current) drug therapy; Z90.710 Acquired absence of both cervix and uterus; Z68.32 Body mass index [BMI] 32.0-32.9, adult; Z90.49 Acquired absence of other specified parts of digestive tract; Z88.5 Allergy status to narcotic agent; Z88.8 Allergy status to other drugs, medicaments and biological substances
CPT/HCPCS: 36415; 85027; C1776; J0690; J1650; J2250; J2405; J2704; J2795; J3010; J3370; J3490

== ENCOUNTER 2019-01-03 09:45 | Outpatient (CLI) | payer MEDICARE ==
[2019-01-03 10:20] LABS: Prothrombin Time 12.9 SEC (12.0-14.7)
== END 2019-01-03 09:46 | disposition home or self-care (01) ==
LOC: LABBT 09:45
PROVIDERS: ATTEND Orthopaedic Surgery
DX: Z01.818 Encounter for other preprocedural examination (principal); M16.12 Unilateral primary osteoarthritis, left hip
CPT/HCPCS: 85610; 86850; 86900; 86901

== ENCOUNTER 2019-06-02 14:46 | Outpatient (CLI) | payer MEDICARE ==
--- NOTE | 2019-06-02 16:47 | ULT ---
BILATERAL CAROTID DUPLEX ULTRASOUND: 06/02/19 HISTORY: Palpable pulsatile finding in the right neck. Evidence for intraluminal plaque involving both the right and left proximal ICAs. Minimal increased velocity in the CCA on the right. PSV right ICA 109 cm/s. EDV 26 cm/s. ICA/CCA rati o of 0.6. PSV left ICA 95 cm/s. EDV 21 cm/s. ICA/CCA ratio of 0.8. Vertebral flow is antegrade. There is noted to be an approximately 1 cm diameter medial lateral thyro id nodule which has a spongiform appearance. Consider follow-up complete thyroid ultrasound for furth er assessment. 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 No hemodynamically significant steno sis. Left thyroid spongiform nodule. Consider follow-up complete thyroid ultrasound for further asses sment. POS: DEANDRE
== END 2019-06-02 14:47 | disposition home or self-care (01) ==
LOC: BICULT 14:46
PROVIDERS: ATTEND Family Medicine
DX: R22.1 Localized swelling, mass and lump, neck (principal); E04.1 Nontoxic single thyroid nodule; I65.23 Occlusion and stenosis of bilateral carotid arteries
CPT/HCPCS: 93880

== ENCOUNTER 2019-06-09 14:01 | Outpatient (CLI) | payer MEDICARE ==
--- NOTE | 2019-06-09 16:03 | ULT ---
Exam: Thyroid ultrasound HISTORY: Thyroid nodule. Left thyroid lobectomy. COMPARISON: None FINDINGS: Thyroid isthmus measures 0.5 cm Right thyroid lobe measures 4.0 x 1.9 x 1.7 cm. In the mid right thyroid lobe is a solid echotexture nodule measuring 1.5 x 1.1 x 1.2 cm. There is a smaller solid nodule in the midpole the right thyroid lobe measuring 0.6 x 0.4 x 0.6 cm Residual left thyroid lobe measures 2.2 x 1.3 x 0.5 cm. There are no solid or cystic nodules in the l eft thyroid lobe IMPRESSION: 2 separate solid nodule in the right thyroid lobe. BI-RADS level TR 3: Mildly suspicious. Follow-up imaging in one year.
== END 2019-06-09 14:02 | disposition home or self-care (01) ==
LOC: BICULT 14:01
PROVIDERS: ATTEND Family Medicine
DX: E04.2 Nontoxic multinodular goiter (principal)
CPT/HCPCS: 76536

== ENCOUNTER 2019-09-26 08:34 | Outpatient (CLI) | payer MEDICARE ==
[2019-09-26] MEDS ORDERED: Magnevist 469MG/ML 20 ML VIAL ONE (10:00)
--- NOTE | 2019-09-26 11:09 | MRI ---
LUMBAR SPINE MRI WITH AND WITHOUT CONTRAST: COMPARISON: 06/29/2018. HISTORY: Previous lumbar fusion. Lumbar stenosis with neurogenic claudication. Bilateral leg pain. FINDINGS: Redemonstration of bilateral transpedicular screws at L4 and L5. Associated metallic susceptibility a rtifact. There is persistent anterolisthesis of L4 upon L5, currently measuring 1.2 cm (previously measuring 1.1 cm). There is persistent grade 1 anterolisthesis of L3 upon L4, currently measuring 0.7 cm (previously measuring 0.5 cm). Overall there is appropriate T1 marrow signal intensity of the lumbar vertebrae. No fracture. No significant STIR hyperintensity to suggest vertebral body edema or ligamentous injury. Appropriate signal intensity of the visualized paraspinal muscles and solid organs. Conus medullaris terminates at the mid L1 level. Sagittal and axial images demonstrate at least mild central canal stenosis at T8 and T9 due to disc m aterial. Evaluation is incomplete. Dedicated thoracic spine MRI may be beneficial. Postcontrast images do not demonstrate any abnormal enhancement with regards to the vertebral bodies. There is no abnormal enhancement with regards to the contents of the thecal sac including the cauda equina and conus medullaris. T12-L1: Adequate disc hydration. No significant central canal stenosis or significant neural foramina l narrowing. L1-L2: Adequate disc hydration. No significant central canal stenosis or significant neural foraminal narrowing. L2-L3: Disc desiccation without significant loss of disc space height. No significant posterior disc abnormality. There is mild ligament flavum thickening and facet hypertrophy. No significant central canal stenosis. Right neural foramen is patent. Mild left neural foraminal narrowing. L3-L4: Disc desiccation with moderate loss of disc space height. There are posterior laminectomy defe cts. Broad-based disc bulge as well as facet hypertrophy result in moderate central canal stenosis. Spondylolisthesis contributes to the degree of central canal stenosis. Moderate bilateral neural fora mariaa narrowing. L4-L5: Desiccation with severe loss of disc space height. Predominantly type II Modic changes involvi ng inferior endplate of L4 and superior plate of L5. There is stable endplate remodeling. There is no significant posterior disc abnormality. There are laminectomy changes. Mild central canal stenosis predominantly due to spondylolisthesis. Moderate to severe bilateral foraminal narrowing predominantly due to spondylolisthesis. L5-S1: Desiccation without significant loss of disc space height. Broad-based disc bulge minimally co ntacts the thecal sac. No significant central canal stenosis. Moderate bilateral facet hypertrophy with fluid in both facet joints. Mild bilateral neural foraminal narrowing. IMPRESSION: 1. Redemonstration of fusion changes at L4-L5. 2. Redemonstration of grade 1 anterolisthesis of L3 upon L4 and L4 upon L5. The degree of spinal list hesis is increased at both levels. 3. Stable postoperative changes with varying degrees of central canal stenosis and neural foraminal n arrowing as described above. Transcribed Date/Time: 09/26/2019 12:48 PM
== END 2019-09-26 08:35 | disposition home or self-care (01) ==
LOC: TBSIIMAG 08:34
PROVIDERS: ATTEND Neurological Surgery
DX: M48.062 Spinal stenosis, lumbar region with neurogenic claudication (principal); M48.07 Spinal stenosis, lumbosacral region; M43.16 Spondylolisthesis, lumbar region; Z98.1 Arthrodesis status
CPT/HCPCS: 72158; 82565; A9579

== ENCOUNTER 2019-10-10 08:51 | Outpatient (CLI) | payer MEDICARE ==
--- NOTE | 2019-10-10 11:42 | CT ---
CT OF THE LUMBAR SPINE WITHOUT IV CONTRAST: INDICATION: History of lumbar radiculopathy with low back pain and bilateral lower extremity pain. COMPARISON: MRI lumbar spine with and without contrast dated 09/26/2019. FINDINGS: The grade I anterolisthesis of L3 on L4 and L4 on L5 are similar-appearing. Posterolateral spinal in strumentation at L4-5 is similar-appearing. There is no evidence to suggest hardware loosening or fa ilure. No acute fracture is evident. There is diffuse osteopenia. There is vacuum disk phenomenon at L3-4 likely related to some ongoing disk instability at this level. There are vascular calcificat ions involving the abdominal aorta. No free fluid or enlarged lymph nodes are evident. There is mod erate bilateral SI joint osteoarthrosis. At L5-S1, there is no appreciable osseous central canal narrowing. There is loss of disk space heigh t in addition to a broad-based disk bulge and moderate facet osteoarthropathy inducing mild bilateral neural foraminal narrowing, right greater than left. At L4-5, there is grade I anterolisthesis. There is a left hemilaminectomy change at L4-5. There is loss of disk space height. There is a residual osteophyte complex at this level inducing moderate t o severe bilateral neural foraminal narrowing that appears similar to the comparison MRI examination. At L3-4, there is the grade I anterolisthesis. There is a broad-based bulge and facet hypertrophy i nducing moderate to moderate bilateral neural foraminal narrowing which appears similar to the prior exam. At L2-3, there is a mild broad-based bulge without appreciable osseous central canal or neural forami nal narrowing. At L1-L2, there is no appreciable osseous central canal or neural foraminal narrowing. There is a mi ld broad-based bulge. At T12-L1, there is no appreciable osseous central canal or neural foraminal narrowing evident. IMPRESSION: 1. Stable severe multilevel spondylosis of the lumbar spine with multilevel neural foraminal narrowi ng as detailed above. 2. Postoperative changes as above. 3. Stable Grade I anterolisthesis of L3-4 and L4-5. There is vacuum-disk phenomenon at L3-4 likely indicative of some disk and facet instability. POS: BH
== END 2019-10-10 08:52 | disposition home or self-care (01) ==
LOC: TBSIIMAG 08:51
PROVIDERS: ATTEND Neurological Surgery
DX: M47.26 Other spondylosis with radiculopathy, lumbar region (principal); M43.16 Spondylolisthesis, lumbar region
CPT/HCPCS: 72131

== ENCOUNTER 2020-02-02 08:21 | Outpatient (CLI) | payer MEDICARE ==
--- NOTE | 2020-02-02 13:04 | CT ---
EXAM: CT ABDOMEN AND PELVIS HISTORY: Bilateral leg edema x6 weeks. COMPARISON: None. Procedure: Multiple contiguous axial images were obtained and a CT of the abdomen and pelvis with IV contrast. C oronal reformats were performed. FINDINGS: Lower Chest: Chronic changes in the lung bases Vessels: Normal caliber aorta. Minimal atherosclerosis. No periaortic fat stranding Heart: Normal heart size. No significant pericardial effusion Abdomen: Portal vein:Patent Gallbladder: No calcified gallstones. Normal caliber wall. Liver: within normal limits. Pancreas: within normal limits. Spleen: within normal limits. Adrenals: within normal limits. Kidneys: Symmetric enhancement. No obstructive uropathy. Peritoneum: No ascites or free air, no fluid collection. Bowel: Gastric mucosa, duodenum and multiple normal caliber small bowel loops. Normal ileocecal junct ion. Surgically absent appendix. Sigmoid colon diverticulosis, without evidence of diverticulitis. Mesentery and Retroperitoneum: No enlarged mesenteric or retroperitoneal lymph nodes. Abdominal Wall: within normal limits. Additional findings: The visualized IVC and common iliac veins as well as the pelvic internal and ext ernal iliac veins appear to be grossly patent. Pelvis: Reproductive Organs: Surgically absent uterus. Pelvis: No mass, lymphadenopathy, free air or free fluid. Bladder: Decompressed, limiting evaluation. Bones: Bilateral transpedicular screws at L4 and L5 without perihardware lucency. Grade 1-2 anterolis thesis of L4 upon L5, grade 1 anterolisthesis of L3 upon L4. IMPRESSION: No evidence of acute intraabdominal\pelvic abnormality.
== END 2020-02-02 08:22 | disposition home or self-care (01) ==
LOC: SCSCT 08:21
PROVIDERS: ATTEND Family Medicine
DX: R60.0 Localized edema (principal)
CPT/HCPCS: 74177; 82565

== ENCOUNTER 2020-05-24 07:38 | Outpatient (CLI) | payer MEDICARE ==
[2020-05-24 11:54] LABS: Anion Gap 16 mmol/L (10-20); BUN (Urea Nitrogen) 43 mg/dL (9.8-20.1); Calc. Creatinine Clearance 0 mL/min (70-130); Carbon Dioxide 27 mmol/L (23-31); Chloride 102 mmol/L (98-107); Sodium 140 mmol/L (136-145)
[2020-05-24 11:55] LABS: Calcium 9.5 mg/dL (7.8-10.44); Glucose 99 mg/dL (83-110)
[2020-05-24 20:01] LABS: SARS-CoV-2 PCR by NAA DETECTED (NotDetected)
== END 2020-05-24 07:39 | disposition home or self-care (01) ==
LOC: LABBT 07:38
PROVIDERS: ATTEND Neurological Surgery
DX: Z01.812 Encounter for preprocedural laboratory examination (principal); U07.1 COVID-19; M54.16 Radiculopathy, lumbar region
CPT/HCPCS: 80048; U0003; U0005; 87635

== ENCOUNTER 2020-07-03 05:10 | Day surgery (SDC) | payer MEDICARE ==
[2020-07-02 10:54] VITALS: BMI 34.9
--- NOTE | 2020-07-02 19:19 | HP ---
HISTORY OF PRESENT ILLNESS: Ms. Knapp is a very pleasant 79-year-old woman, known to us for prior evaluations and surgery for lumbar stenosis, who returns now with debilitating back and bilateral lower extremity pains that would fit an L3 pattern with a new MRI scan that reveals slip at L3-L4, the segment adjacent to the prior L4-L5 fusion with severe foraminal and central canal stenosis. She has been managing with Dr. Baez via epidural steroid injections, but these are not providing much in the way of significant sustained relief. She hopes to discuss more definitive surgical management. PAST MEDICAL HISTORY: Uterine cancer, arthritis, seasonal allergies, cataracts, chronic pain syndrome, hypertension. PAST SURGICAL HISTORY: Appendectomy, thyroidectomy, tonsillectomy, unspecified jaw surgery, carpal tunnel release, hysterectomy, knee arthroscopy, cholecystectomy, unspecified foot surgery, unspecified nasal surgery, total hip replacement, left. CURRENT MEDICATIONS: 1. Bumetanide. 2. Gabapentin. 3. Losartan. 4. Hydrochlorothiazide. 5. Diclofenac. 6. Omeprazole. 7. Levothyroxine. 8. Calcium. 9. Fenofibrate. 10. Cyclobenzaprine. 11. Metolazone. ALLERGIES: TO LATEX, CODEINE, MORPHINE, DEMEROL, ASPIRIN, AND ADHESIVE TAPE. ASSESSMENT: Lumbar spinal stenosis. PLAN: Dr. Bethea met with the patient, reviewed imaging, advocated for reoperation, decompression at L3-L4 with extension of fusion to L3. He explained to the patient the risks, benefits, and alternatives to the procedure. The patient expressed understanding and elected to move forward with surgery as discussed. I do believe the patient is mentally competent and capable of making medical decisions for herself. We will move forward with surgery as planned. Job ID: [id number]
[2020-07-03] MEDS ORDERED: Fentanyl 100 MCG/2 ML VIAL ONE ×2 (06:03→09:41)
[2020-07-03] MEDS ORDERED: HYDROmorphone 0.5 MG/0.5 ML SYRINGE ONE (06:04)
[2020-07-03] MEDS ORDERED: Lidocaine 2% Jelly 5 ML TUBE ONE (06:04)
[2020-07-03] MEDS ORDERED: EPINEPHrine 1 MG/ML AMP ONE (06:10)
[2020-07-03] MEDS ORDERED: Thrombin 5000 UNITS/5 ML VIAL ONE (06:10)
[2020-07-03] MEDS ORDERED: Bupivacaine PF 0.5% 30 ML VIAL ONE (06:10)
[2020-07-03 06:46] LABS: Anion Gap 16 mmol/L (10-20); BUN (Urea Nitrogen) 44 mg/dL (9.8-20.1); Calc. Creatinine Clearance 41 mL/min (70-130); Calcium 9.3 mg/dL (7.8-10.44); Carbon Dioxide 24 mmol/L (23-31); Chloride 104 mmol/L (98-107); Glucose 102 mg/dL (83-110); Potassium 4.3 mmol/L (3.5-5.1); Sodium 140 mmol/L (136-145)
[2020-07-03] MEDS ORDERED: SUGAMMADEX SODIUM 200 MG/2 ML VIAL ONE (08:55)
--- NOTE | 2020-07-03 09:03 | OP ---
DATE OF PROCEDURE: 07/03/2020 PROCUREMENT REPRESENTATIVE: Kendall Aldana PA-C INDICATION: Pain. DIAGNOSES: Lumbar stenosis, lumbar spondylolisthesis, lumbar radiculopathy. PROCEDURES PERFORMED: Reoperation, exploration of fusion, lumbar decompression, L3-L4, extension of fusion to L3-L4, placement of allograft, and placement of autograft technique. ANESTHESIA: General. DESCRIPTION OF PROCEDURE: The patient was brought into the operating room and placed under general anesthesia. She was flipped from the supine to prone position on the operating room table. A linear incision was planned at the location of a prior incision, but also extended cephalad. After prepping and draping and after an appropriate preoperative pause, the incision was created. The soft tissues were swept away from midline. Self-retaining retractors were placed. The patient's old hardware was identified, where set screws and two rods were removed from L4-L5 bilaterally. We then focused on the L3-L4 interface, where a complete decompression was performed centrally as well as in the lateral recesses until the L3 pedicles could be identified. Pedicle screws were then placed with the aid of C-arm fluoroscopy. An intraoperative 3D CT scan was then performed to confirm appropriate placement of hardware. Rods were then placed across all three screw heads on each side and final tightened with set screws. Allograft and autograft material were then placed within the lateral confines of the instrumentation construct. The wound was irrigated. Hemostasis was maintained throughout. The wound was then closed in anatomic layers, and a pressure dressing was applied. There were no known procedural complications. Job ID: [id number]
[2020-07-03] MEDS ORDERED: Glycopyrrolate 0.2 MG/ML 5 ML SYRINGE ONE (09:21)
[2020-07-03] MEDS ORDERED: PROPOFOL 200 MG/20 ML VIAL ONE (09:21)
[2020-07-03] MEDS ORDERED: Rocuronium Bromide 10 MG/ML (10ML VIAL) ONE (09:21)
[2020-07-03] MEDS ORDERED: Lidocaine 1% PF 5 ML VIAL ONE (09:21)
[2020-07-03] MEDS ORDERED: Dexamethasone 20 MG/5 ML VIAL ONE (09:21)
[2020-07-03] MEDS ORDERED: Ondansetron PF 4 MG/2 ML Vial ONE ×2 (09:21→11:01)
[2020-07-03] MEDS ORDERED: PHENYLEPHRINE-NS 100 MCG/ML 10 ML SYRINGE ONE (09:21)
[2020-07-03] MEDS ORDERED: ePHEDrine 50 MG/ML VIAL ONE (09:21)
[2020-07-03] MEDS ORDERED: Acetaminophen 325 MG TAB ONE (13:09)
[2020-07-03] MEDS ORDERED: Promethazine HCl 25 MG/ML VIAL ONE (13:42)
== END 2020-07-03 14:10 | disposition home or self-care (01) ==
LOC: SDC 05:10
PROVIDERS: ATTEND Neurological Surgery
PROC: 0SG0071 Fusion of Lumbar Vertebral Joint with Autologous Tissue Substitute, Posterior Approach, Posterior Column, Open Approach (ICD-10-PCS; principal; 2020-07-03)
DX: M48.061 Spinal stenosis, lumbar region without neurogenic claudication (principal); M43.16 Spondylolisthesis, lumbar region; M54.16 Radiculopathy, lumbar region; M19.90 Unspecified osteoarthritis, unspecified site; J30.2 Other seasonal allergic rhinitis; G89.4 Chronic pain syndrome; I10 Essential (primary) hypertension; E89.0 Postprocedural hypothyroidism; Z79.899 Other long term (current) drug therapy; Z88.5 Allergy status to narcotic agent; Z88.6 Allergy status to analgesic agent; Z88.8 Allergy status to other drugs, medicaments and biological substances; Z91.048 Other nonmedicinal substance allergy status; Z98.1 Arthrodesis status
CPT/HCPCS: 36415; 76000; 80048; 93005; 93010; C1713; C1768; J0171; J0690; J1100; J1170; J2405; J2550; J2704; J3010; J3490; S0020